=== PATIENT | female | born 1975 | race Caucasian/White ===

== ENCOUNTER 2017-12-12 19:14 | Emergency (ER) | payer MEDICAID ==
[~2017-12-12] VITALS: Ht 167.6 cm; Wt 49.9 kg
[2017-12-12 19:15] VITALS: BP_SYST 110
--- NOTE | 2017-12-12 19:48 | NUR ---
Patient to [facility] for evaluation. Side rails up.
--- NOTE | 2017-12-12 20:00 | NUR ---
JASON Calle HOME [employer] at bedside examining patient.
--- NOTE | 2017-12-12 20:02 | NUR ---
Pt ambulated into ED c/o sore throat/dull pain radiating to bilateral ears x4 days. Pt states she is having difficulty breathing everytime she swallows. Pt speaking in full sentences, no cough present, breathing even and unlabored. at bedside. No other injuries/complaitns per pt/noted. Will continue to monitor.
--- NOTE | 2017-12-12 20:35 | NUR ---
Pt refused medications. Alva HORN aware.
--- NOTE | 2017-12-12 20:56 | NUR ---
Patient given written and verbal discharge instructions and verbalizes understanding. JASON Calle [employer] discussed with patient the results and treatment provided. Patient in stable condition. ID arm band removed. Rx of Motrin, Prednisone, and Penicillin given. Patient educated on pain management and to follow up with PMD. Pain Scale 0. Opportunity for questions provided and answered.
[2017-12-12] MEDS: PENICILLIN G BENZATHINE 1.2 MMU/2 ML SYR IM ONE (20:57)
[2017-12-12] MEDS: DEXAMETHASONE SOD PHOSPHATE 10 MG/ML VIAL IM ONE (20:57)
[2017-12-12 21:04] VITALS: BP_SYST 113
== END 2017-12-12 21:04 | disposition home or self-care (01) ==
LOC: SED 19:14
DX: J02.9 Acute pharyngitis, unspecified (principal); E11.9 Type 2 diabetes mellitus without complications
CPT/HCPCS: 99283

== ENCOUNTER 2018-02-26 12:19 | Emergency (ER) | payer MEDICAID ==
[~2018-02-26] VITALS: Ht 152.4 cm; Wt 54.4 kg
[2018-02-26 12:23] VITALS: BP_SYST 108
[2018-02-26] MEDS ORDERED: MORPHINE SULFATE 10 MG/ML VIAL IM ONE (14:00)
[2018-02-26] MEDS ORDERED: KETOROLAC TROMETHAMINE 30 MG VIAL IM ONE (15:15)
[2018-02-26 15:44] VITALS: BP_SYST 107
== END 2018-02-26 15:44 | disposition home or self-care (01) ==
LOC: SED 12:19
DX: M54.12 Radiculopathy, cervical region (principal); E11.9 Type 2 diabetes mellitus without complications
CPT/HCPCS: 96372; 99284; J1885; J2270

== ENCOUNTER 2019-02-21 22:28 | Emergency (ER) | payer MEDICAID ==
[~2019-02-21] VITALS: Ht 167.6 cm; Wt 54.4 kg
[2019-02-21 22:33] VITALS: BP_SYST 116
[2019-02-21] MEDS ORDERED: MAG HYDROX/AL HYDROX/SIMETH 30 ML, BELLADONNA ALKALOIDS/PHENOBARB 10 ML, LIDOCAINE VISC... PO ONE ×3 (23:00)
[2019-02-21 23:30] VITALS: BP_SYST 110
== END 2019-02-21 23:30 | disposition home or self-care (01) ==
LOC: SED 22:28
DX: K12.1 Other forms of stomatitis (principal); E11.9 Type 2 diabetes mellitus without complications
CPT/HCPCS: 99282; J2001

== ENCOUNTER 2019-05-17 18:36 | Emergency (ER) | payer MEDICAID ==
[~2019-05-17] VITALS: Ht 167.6 cm; Wt 56.7 kg
[2019-05-17 18:42] VITALS: BP_SYST 102
--- NOTE | 2019-05-17 18:45 | NUR ---
Patient to ER bed H1 to gown for evaluation. Side rails up.
--- NOTE | 2019-05-17 18:56 | NUR ---
Patient brought in with family complaining of left sided tooth pain x 2 days.. Pain 05/07. No other complaints/injuries per patient or as noted. Will continue to monitor.
[2019-05-17] MEDS ORDERED: HYDROcodone/ACETAMIN 10-325 MG TAB PO ONE (19:00)
[2019-05-17] MEDS ORDERED: KETOROLAC TROMETHAMINE 60 MG/2 ML VIAL IM ONE (19:00)
--- NOTE | 2019-05-17 19:00 | NUR ---
ER Dr. Burr at bedside examining patient.
[2019-05-17 19:25] VITALS: BP_SYST 112
--- NOTE | 2019-05-17 19:25 | NUR ---
Patient given written and verbal discharge instructions and verbalizes understanding. ER MD discussed with patient the results and treatment provided. Patient in stable condition. ID arm band removed. Rx of Scurry, Motrin, Amoxicillin given. Patient educated on pain management and to follow up with PMD. Pain Scale 0. Opportunity for questions provided and answered. Medication side effect fact sheet provided.
== END 2019-05-17 19:25 | disposition home or self-care (01) ==
LOC: SED 18:36
DX: K08.89 Other specified disorders of teeth and supporting structures (principal); E11.9 Type 2 diabetes mellitus without complications
CPT/HCPCS: 96372; 99283; J1885

== ENCOUNTER 2019-06-24 20:54 | Emergency (ER) | payer MEDICAID ==
[~2019-06-24] VITALS: Ht 165.1 cm; Wt 54.4 kg
[2019-06-24 21:01] VITALS: BP_SYST 102
== END 2019-06-24 22:06 | disposition left against medical advice (07) ==
LOC: SED 20:54
DX: M79.651 Pain in right thigh (principal); Z53.21 Procedure and treatment not carried out due to patient leaving prior to being seen by health care provider

== ENCOUNTER 2019-06-30 20:46 | Emergency (ER) | payer MEDICAID ==
--- NOTE | 2019-06-30 21:15 | NUR ---
Pt called and not in waiting room or outside of ER.
--- NOTE | 2019-06-30 21:30 | NUR ---
Pt called second time. Not in waiting room or outside of ER.
--- NOTE | 2019-06-30 21:54 | NUR ---
Pt called third time. Not in waiting room or outside of ER. Pt LWBS.
== END 2019-06-30 21:54 | disposition still patient (30) ==
LOC: SED 20:46
DX: M79.606 Pain in leg, unspecified (principal); Z53.21 Procedure and treatment not carried out due to patient leaving prior to being seen by health care provider

== ENCOUNTER 2024-07-28 22:10 | Emergency (ER) | payer MEDICAID ==
[~2024-07-28] VITALS: Ht 152.4 cm; Wt 54.4 kg
[2024-07-28 22:21] VITALS: BP_SYST 111; PULSE 86; RESP 16; TEMP 97.8; O2SAT 99
[2024-07-28] MEDS: MORPHINE 2 MG/ML INJ. SYRINGE IVP ONE (23:23)
[2024-07-28] MEDS: NACL 0.9% 1,000 ML IV ONE (23:23)
[2024-07-28] MEDS: ONDANSETRON HCL 4 MG/2 ML VIAL IVP ONE (23:23)
[2024-07-28 23:25] LABS: BILIRUBIN,URINE NEGATIVE (NEGATIVE); BLOOD, URINE NEGATIVE (NEGATIVE); CLARITY/URINE CLEAR (CLEAR); COLOR,URINE YELLOW (YELLOW); GLUCOSE,URINE 3+ (NEGATIVE); KETONES,URINE NEGATIVE (NEGATIVE); LEUKOCYTE ESTERASE ,URINE NEGATIVE (NEGATIVE); NITRITE, URINE NEGATIVE (NEGATIVE); PROTEIN URINE NEGATIVE (NEGATIVE); UROBILINOGEN,URINE 0.2 (0.2-1.0)
[2024-07-28 23:41] LABS: BASOPHILS # (AUTO) 0.1 K/uL (0.0-0.2); BASOPHILS % (AUTO) 0.7 % (0.0-2.0); EOSINOPHILS % (AUTO) 0.6 % (0.0-4.0); HEMATOCRIT 30.1 % (36-48); HEMOGLOBIN 9.7 g/dL (12.0-16.0); LYMPHOCYTES # (AUTO) 1.4 K/uL (1.0-5.5); LYMPHOCYTES % (AUTO) 18.3 % (20.5-51.5); MEAN CORPUSCULAR HEMOGLOBIN 24 pg (27-31); MEAN CORPUSCULAR HGB CONC 32 % (32-36); MEAN CORPUSCULAR VOLUME 76 fL (79.0-98.0); MONOCYTES # (AUTO) 0.5 K/uL (0.0-1.0); MONOCYTES % (AUTO) 6.3 % (1.7-9.3); NEUTROPHILS # (AUTO) 5.7 K/uL (1.8-7.7); NEUTROPHILS % (AUTO) 74.1 % (40.0-70.0); PLATELET COUNT (AUTO) 251 K/uL (130-430); RED BLOOD CELL COUNT(AUTO) 3.97 MIL/uL (4.2-6.2); RED CELL DISTRIBUTION WIDTH 18.3 % (9.0-15.0); WHITE BLOOD COUNT (AUTO) 7.7 K/uL (4.8-10.8)
[2024-07-29 00:05] LABS: ALBUMIN 3.4 g/dL (3.4-4.8); BILIRUBIN,DIRECT 0.1 mg/dL (0.0-0.3); CALCIUM 8.7 mg/dL (8.4-11.0); CREATININE 0.92 mg/dL (0.55-1.30); POTASSIUM 4.4 mmol/L (3.5-5.1); TOTAL BILIRUBIN 0.8 mg/dL (0.0-1.0); TOTAL PROTEIN, SERUM 7.1 g/dL (6.4-8.3)
[2024-07-29 00:18] LABS: BACTERIA,URINE RARE /HPF (None Seen); RBC,URINE 0-3 /HPF (0-3); WBC,URINE 0-3 /HPF (0-3)
[2024-07-29] MEDS: INSULIN REGULAR, HUMAN 10 UNITS/0.1 ML, 3 ML VIAL IVP ONE (00:30)
[2024-07-29] MEDS: NACL 0.9% 1,000 ML IV ONE (00:56)
[2024-07-29] MEDS: KETOROLAC TROMETHAMINE 30 MG VIAL IVP ONE (02:05)
[2024-07-29] MEDS ORDERED: METF-864 PO (02:27)
[2024-07-29] MEDS ORDERED: IBUP-1969 PO (02:28)
[2024-07-29 02:57] VITALS: BP_SYST 128; PULSE 76; RESP 20; TEMP 98; O2SAT 98
== END 2024-07-29 02:57 | disposition home or self-care (01) ==
LOC: SED 22:10
DX: K52.9 Noninfective gastroenteritis and colitis, unspecified (principal); R10.12 Left upper quadrant pain; E11.9 Type 2 diabetes mellitus without complications
CPT/HCPCS: 99285; 74176; 96374; 96361 ×2; 96375 ×2; 80076; 80048; 81000; 81001; 83690; 85025; 36415; 81025; 82948; 81015; J2405; J2270; J7030; J1815; J1885